=== PATIENT | female | born 1965 | race African-American/Black ===

== ENCOUNTER 2017-03-02 19:25 | Emergency (ER) | payer SELFPAY ==
[~2017-03-02] VITALS: Ht 160 cm; Wt 68.0 kg
[~2017-03-02 19:25] MED LIST: CEPH500C2 PO; FERS325 PO; IBUP-1547 PO; PANT40TA25 PO
[2017-03-02] MEDS ORDERED: ACETAMINOPHEN/CODEINE 300-30 MG TABLET PO ONE (22:00)
[2017-03-02] MEDS ORDERED: IBUPROFEN 600 MG TABLET PO ONE (22:00)
[2017-03-02 23:01] VITALS: BP 129/88
== END 2017-03-02 23:04 | disposition home or self-care (01) ==
LOC: EMS 19:26
DX: S33.5XXA Sprain of ligaments of lumbar spine, initial encounter (principal); S16.1XXA Strain of muscle, fascia and tendon at neck level, initial encounter; J45.909 Unspecified asthma, uncomplicated; I10 Essential (primary) hypertension; F17.210 Nicotine dependence, cigarettes, uncomplicated; W01.0XXA Fall on same level from slipping, tripping and stumbling without subsequent striking against object, initial encounter; Y93.01 Activity, walking, marching and hiking; Y92.89 Other specified places as the place of occurrence of the external cause; Y99.8 Other external cause status
CPT/HCPCS: 72040; 72070; 72100; 99284; 99406

== ENCOUNTER 2019-01-08 14:17 | Emergency (ER) | payer MEDICARE, OTHER ==
[~2019-01-08] VITALS: Ht 160 cm; Wt 68.2 kg
[~2019-01-08 14:17] MED LIST changes: -CEPH500C2 PO; +FERR-89 PO; -FERS325 PO; -IBUP-1547 PO; +IBUP-2077 PO
[2019-01-08] MEDS ORDERED: ALBU8HFA IH (14:36)
[2019-01-08] MEDS ORDERED: PredniSONE 20 MG TABLET PO ONE (15:15)
[2019-01-08] MEDS ORDERED: ALBUTEROL SULFATE 2.5 MG/0.5 ML NEB SOLUTION NEB ONE (15:15)
[2019-01-08] MEDS ORDERED: IPRATROPIUM BROMIDE 0.5 MG/2.5 ML NEB SOLUTION NEB ONE (15:15)
[2019-01-08] MEDS ORDERED: 0.9% SODIUM CHLORIDE 5 ML NEB SOLUTION NEB ONE (15:40)
[2019-01-08 16:28] VITALS: BP 148/86
== END 2019-01-08 16:35 | disposition home or self-care (01) ==
LOC: EMS 14:19
DX: J45.901 Unspecified asthma with (acute) exacerbation (principal); F17.210 Nicotine dependence, cigarettes, uncomplicated; F12.10 Cannabis abuse, uncomplicated; I10 Essential (primary) hypertension; Z79.899 Other long term (current) drug therapy
CPT/HCPCS: 94640; 99283; 99406; J7512

== ENCOUNTER 2019-07-04 19:56 | Emergency (ER) | payer MEDICARE, OTHER ==
[~2019-07-04] VITALS: Ht 160 cm; Wt 70.5 kg
[~2019-07-04 19:56] MED LIST changes: +ALBU8HFA IH; -FERR-89 PO; -IBUP-2077 PO; -PANT40TA25 PO
[2019-07-04] MEDS ORDERED: ALBUTEROL SULFATE 2.5 MG/0.5 ML NEB SOLUTION NEB ONE ×2 (21:30)
[2019-07-04] MEDS ORDERED: IBUPROFEN 800 MG TABLET PO ONE (21:30)
[2019-07-04] MEDS ORDERED: IPRATROPIUM BROMIDE 0.5 MG/2.5 ML NEB SOLUTION NEB ONE ×2 (21:30)
[2019-07-04 22:17] LABS: BASOPHILS % (AUTO) 0.7 % (0.0-2.0); EOSINOPHILS % (AUTO) 1.1 % (1.0-6.0); HEMATOCRIT 42.4 % (36-46); HEMOGLOBIN 13.1 g/dL (12.0-16.0); LYMPHOCYTES % (AUTO) 24.9 % (22.0-44.0); MEAN CORPUSCULAR HEMOGLOBIN 22.6 pg (26.0-34.0); MEAN CORPUSCULAR HGB CONC 30.9 G/dL (31.0-37.0); MEAN CORPUSCULAR VOLUME 73 fL (80-100); MONOCYTES # (AUTO) 0.7 K/uL (0.1-1.0); MONOCYTES % (AUTO) 8.2 % (2.0-9.0); NEUTROPHILS # (AUTO) 5.3 K/uL (1.8-7.7); NEUTROPHILS % (AUTO) 65.1 % (40.0-70.0); PLATELET COUNT (AUTO) 212 K/uL (150-450)
[2019-07-04] MEDS ORDERED: LIDOCAINE 1% 10 ML VIAL ONE (22:26)
[2019-07-04 22:27] LABS: ANION GAP 12 mmol/L (8-16); CALCIUM, TOTAL 9.4 mg/dL (8.8-10.5); CARBON DIOXIDE 25 mmol/L (22-29); CHLORIDE 104 mmol/L (98-107); CREATININE 0.74 mg/dL (0.60-1.30); GLOMERULAR FILTR. RATE CALC > 60 mL/min (>60); GLUCOSE,RANDOM 88 mg/dL (70-110); POTASSIUM 3.9 mmol/L (3.5-5.1); SODIUM SERUM 141 mmol/L (136-145); UREA NITROGEN, BLOOD 14 mg/dL (7-18)
[2019-07-04 22:32] LABS: ALANINE AMINOTRANSFERASE 28 U/L (12-78); ALBUMIN 3.7 g/dL (3.4-5.0); ALKALINE PHOSPHATASE 100 U/L (46-116); ASPARTATE AMINOTRANSFERASE 24 U/L (15-37); BILIRUBIN,TOTAL 0.6 mg/dL (0.1-1.0); TOTAL PROTEIN, SERUM 6.9 g/dL (6.4-8.2)
[2019-07-04] MEDS ORDERED: LORazepam 2 MG/ML VIAL ONE (22:49)
[2019-07-05] MEDS ORDERED: LORazepam 2 MG/ML VIAL IVP ONE (00:30)
[2019-07-05 01:06] VITALS: BP 136/68
== END 2019-07-04 23:59 | disposition home or self-care (01) ==
LOC: EMS 20:05
DX: T54.92XA Toxic effect of unspecified corrosive substance, intentional self-harm, initial encounter (principal); S90.821A Blister (nonthermal), right foot, initial encounter; L02.612 Cutaneous abscess of left foot; J45.901 Unspecified asthma with (acute) exacerbation; I10 Essential (primary) hypertension; F12.90 Cannabis use, unspecified, uncomplicated; F17.210 Nicotine dependence, cigarettes, uncomplicated; Z79.899 Other long term (current) drug therapy; X58.XXXA Exposure to other specified factors, initial encounter; Y93.89 Activity, other specified; Y92.89 Other specified places as the place of occurrence of the external cause; Y99.8 Other external cause status
CPT/HCPCS: 10060; 36415; 80053; 85025; 94640; 99285; J2060; J3490; 96374

== ENCOUNTER 2020-01-28 01:15 | Emergency (ER) | payer MEDICARE, OTHER ==
[~2020-01-28] VITALS: Ht 165.1 cm; Wt 81.8 kg
[2020-01-28] MEDS ORDERED: PredniSONE 20 MG TABLET PO ONE (02:00)
[2020-01-28] MEDS ORDERED: DiphenhydrAMINE HCL 25 MG CAPSULE PO ONE (02:00)
[2020-01-28] MEDS ORDERED: IBUPROFEN 600 MG TABLET PO ONE (03:00)
[2020-01-28] MEDS ORDERED: DOXYCYCLINE HYCLATE 100 MG CAPSULE PO ONE (03:00)
[2020-01-28 03:30] VITALS: BP 133/75
== END 2020-01-28 03:50 | disposition home or self-care (01) ==
LOC: EMS 01:16
DX: T63.441A Toxic effect of venom of bees, accidental (unintentional), initial encounter (principal); J45.909 Unspecified asthma, uncomplicated; I10 Essential (primary) hypertension; F17.210 Nicotine dependence, cigarettes, uncomplicated; F12.90 Cannabis use, unspecified, uncomplicated; Y92.89 Other specified places as the place of occurrence of the external cause
CPT/HCPCS: 99283; J7512; 29540

== ENCOUNTER 2021-04-07 15:11 | Emergency (ER) | payer MEDICARE, OTHER ==
[~2021-04-07] VITALS: Ht 160 cm; Wt 69.0 kg
[2021-04-07] MEDS ORDERED: KETOROLAC TROMETHAMINE 30 MG/ML VIAL IM ONE (17:30)
[2021-04-07 17:36] VITALS: BP 130/91
== END 2021-04-07 19:16 | disposition home or self-care (01) ==
LOC: EMS 15:11
DX: R51.9 Headache, unspecified (principal); M54.2 Cervicalgia; M54.5 Low back pain; J45.909 Unspecified asthma, uncomplicated; I10 Essential (primary) hypertension; F17.210 Nicotine dependence, cigarettes, uncomplicated; F12.90 Cannabis use, unspecified, uncomplicated; V49.9XXA Car occupant (driver) (passenger) injured in unspecified traffic accident, initial encounter; Y93.89 Activity, other specified; Y92.89 Other specified places as the place of occurrence of the external cause; Y99.8 Other external cause status
CPT/HCPCS: 72040; 72100; 73030; 96372; 99284; J1885

== ENCOUNTER 2021-06-05 07:54 | Emergency (ER) | payer MEDICARE, OTHER ==
[~2021-06-05] VITALS: Ht 162.6 cm; Wt 70.5 kg
[2021-06-05] MEDS ORDERED: HYDROCODONE/ACETAMINOPHEN 5-325 MG TABLET PO ONE (09:00)
[2021-06-05 09:58] LABS: BASOPHILS % (AUTO) 0.6 % (0.0-2.0); EOSINOPHILS % (AUTO) 1.8 % (1.0-6.0); HEMATOCRIT 40.4 % (36-46); HEMOGLOBIN 12.7 g/dL (12.0-16.0); LYMPHOCYTES # (AUTO) 2.2 K/uL (1.0-4.8); LYMPHOCYTES % (AUTO) 32.3 % (22.0-44.0); MEAN CORPUSCULAR HEMOGLOBIN 23.2 pg (26.0-34.0); MEAN CORPUSCULAR HGB CONC 31.4 G/dL (31.0-37.0); MEAN CORPUSCULAR VOLUME 74 fL (80-100); MONOCYTES # (AUTO) 0.6 K/uL (0.1-1.0); MONOCYTES % (AUTO) 8.4 % (2.0-9.0); NEUTROPHILS # (AUTO) 3.9 K/uL (1.8-7.7); NEUTROPHILS % (AUTO) 56.9 % (40.0-70.0); PLATELET COUNT (AUTO) 235 K/uL (150-450); RED BLOOD CELL COUNT(AUTO) 5.48 MIL/uL (4.00-5.20); RED CELL DISTRIBUTION WIDTH 15.1 % (11.5-14.5)
[2021-06-05 10:09] LABS: ANION GAP 10 mmol/L (8-16); CALCIUM, TOTAL 8.5 mg/dL (8.8-10.5); CARBON DIOXIDE 28 mmol/L (22-29); CHLORIDE 104 mmol/L (98-107); GLOMERULAR FILTR. RATE CALC > 60 mL/min (>60); GLUCOSE,RANDOM 110 mg/dL (70-110); POTASSIUM 3.9 mmol/L (3.5-5.1); SODIUM SERUM 142 mmol/L (136-145); UREA NITROGEN, BLOOD 10 mg/dL (7-18)
[2021-06-05 10:15] LABS: ALANINE AMINOTRANSFERASE 36 U/L (12-78); ALBUMIN 3.4 g/dL (3.4-5.0); ALKALINE PHOSPHATASE 92 U/L (46-116); ASPARTATE AMINOTRANSFERASE 26 U/L (15-37); BILIRUBIN,TOTAL 0.3 mg/dL (0.1-1.0); C-REACTIVE PROTEIN QUANT 0.31 mg/dL (0.00-0.30); TOTAL PROTEIN, SERUM 6.7 g/dL (6.4-8.2)
[2021-06-05 11:03] LABS: ERYTHROCYTE SEDIMENTATION RATE 10 MM/HR (0-20)
[2021-06-05 12:21] VITALS: BP 131/67
[2021-06-05 12:38] LABS: URIC ACID 5.9 mg/dL (2.6-7.2)
== END 2021-06-05 12:31 | disposition home or self-care (01) ==
LOC: EMS 08:12
DX: M25.562 Pain in left knee (principal); R10.9 Unspecified abdominal pain; M79.89 Other specified soft tissue disorders; J45.909 Unspecified asthma, uncomplicated; I10 Essential (primary) hypertension; F17.210 Nicotine dependence, cigarettes, uncomplicated; F12.90 Cannabis use, unspecified, uncomplicated
CPT/HCPCS: 29530; 80053; 84550; 85025; 85379; 85651; 86140; 87040; 93971; 99284

== ENCOUNTER 2021-12-13 16:44 | Inpatient (IN) | payer MEDICARE, OTHER ==
[~2021-12-13] VITALS: Ht 160 cm; Wt 65.4 kg
[2021-12-13 17:42] LABS: HEMOGLOBIN 14.3 g/dL (12.0-16.0); MEAN CORPUSCULAR HEMOGLOBIN 24.3 pg (26.0-34.0)
[2021-12-13] MEDS ORDERED: CLOPIDOGREL BISULFATE 75 MG TABLET PO ONE (17:45)
[2021-12-13] MEDS ORDERED: ASPIRIN 325 MG TABLET PO ONE (17:45)
[2021-12-13 17:46] LABS: EOSINOPHILS % (AUTO) 0.2 % (1.0-6.0); HEMATOCRIT 43.8 % (36-46); LYMPHOCYTES # (AUTO) 1.8 K/uL (1.0-4.8); LYMPHOCYTES % (AUTO) 26.5 % (22.0-44.0); MEAN CORPUSCULAR HGB CONC 32.6 G/dL (31.0-37.0); MEAN CORPUSCULAR VOLUME 75 fL (80-100); MONOCYTES # (AUTO) 0.6 K/uL (0.1-1.0); MONOCYTES % (AUTO) 8.2 % (2.0-9.0); NEUTROPHILS # (AUTO) 4.5 K/uL (1.8-7.7); NEUTROPHILS % (AUTO) 64.1 % (40.0-70.0); PLATELET COUNT (AUTO) 294 K/uL (150-450); RED BLOOD CELL COUNT(AUTO) 5.87 MIL/uL (4.00-5.20); RED CELL DISTRIBUTION WIDTH 14.8 % (11.5-14.5)
[2021-12-13 17:55] LABS: PROTHROMBIN TIME 10.6 SEC (9.4-11.6)
[2021-12-13 17:55] LABS: ALANINE AMINOTRANSFERASE 29 U/L (12-78); ALBUMIN 3.7 g/dL (3.4-5.0); ALKALINE PHOSPHATASE 79 U/L (46-116); ANION GAP 12 mmol/L (8-16); ASPARTATE AMINOTRANSFERASE 27 U/L (15-37); BILIRUBIN,TOTAL 0.8 mg/dL (0.1-1.0); CARBON DIOXIDE 28 mmol/L (22-29); CHLORIDE 103 mmol/L (98-107); CREATININE 0.59 mg/dL (0.60-1.30); GLUCOSE,RANDOM 95 mg/dL (70-110); SODIUM SERUM 143 mmol/L (136-145); TOTAL PROTEIN, SERUM 7.9 g/dL (6.4-8.2); UREA NITROGEN, BLOOD 10 mg/dL (7-18)
[2021-12-13 17:56] LABS: GLOMERULAR FILTR. RATE CALC > 60 mL/min (>60)
[2021-12-13 18:06] LABS: GLUCOMETER DEV NAME(LOC) ERT.5; GLUCOSE,POINT OF CARE 78 MG/DL (70-110)
[2021-12-13] MEDS ORDERED: ASPIRIN 300 MG RECTAL SUPPOSITORY PR ONE ×2 (19:45→20:00)
[2021-12-13] MEDS ORDERED: ONDANSETRON HCL 4 MG/2 ML VIAL IVP PRN (19:45)
[2021-12-13] MEDS ORDERED: ACETAMINOPHEN 325 MG TABLET PO PRN (19:45)
[2021-12-13] MEDS ORDERED: INSULIN LISPRO 100 UNITS/ML SQ PRN (20:00)
[2021-12-13] MEDS: OXYGEN THERAPY IH SCH (20:00)
[2021-12-13] MEDS ORDERED: POTASSIUM CHL 40 MEQ/D5-0.45NS 1,000 ML IV ONE (20:00)
[2021-12-13] MEDS ORDERED: DEXTROSE 50%-WATER 25 GM/50 ML SYRINGE IVP PRN (20:00)
[2021-12-13 20:15] LABS: CHOL/HDL RATIO 2.6 (3.9-5.7); CHOLESTEROL 245 mg/dL (131-200); HDL CHOLESTEROL 96 mg/dL (40-60); LDL CHOL (CALC.) 122 mg/dL (0-130); TRIGLYCERIDES 133 mg/dL (15-150)
[2021-12-13 20:37] LABS: THYROID STIMULATING HORMONE < 0.01 uIU/mL (0.36-3.74)
[2021-12-13] MEDS ORDERED: HALOPERIDOL LACTATE 5 MG/ML VIAL IM ONE (21:00)
[2021-12-13 21:06] LABS: COVID AG,FIA SOURCE NASAL SWAB
[2021-12-14] MEDS: HEPARIN SODIUM,PORCINE 5,000 UNITS/ML VIAL SQ SCH ×3 (00:35→16:00)
[2021-12-14 00:46] LABS: GLUCOSE,POINT OF CARE 99 MG/DL (70-110)
[2021-12-14 05:36] LABS: EOSINOPHILS % (AUTO) 0.4 % (1.0-6.0); HEMATOCRIT 46.3 % (36-46); HEMOGLOBIN 14.8 g/dL (12.0-16.0); LYMPHOCYTES # (AUTO) 2.2 K/uL (1.0-4.8); LYMPHOCYTES % (AUTO) 31.9 % (22.0-44.0); MEAN CORPUSCULAR HEMOGLOBIN 24.2 pg (26.0-34.0); MEAN CORPUSCULAR HGB CONC 32.1 G/dL (31.0-37.0); MEAN CORPUSCULAR VOLUME 76 fL (80-100); MONOCYTES # (AUTO) 0.8 K/uL (0.1-1.0); NEUTROPHILS # (AUTO) 3.9 K/uL (1.8-7.7); NEUTROPHILS % (AUTO) 55.7 % (40.0-70.0); PLATELET COUNT (AUTO) 312 K/uL (150-450); RED BLOOD CELL COUNT(AUTO) 6.13 MIL/uL (4.00-5.20); RED CELL DISTRIBUTION WIDTH 14.8 % (11.5-14.5)
[2021-12-14 05:43] LABS: ANION GAP 16 mmol/L (8-16); CALCIUM, TOTAL 9.3 mg/dL (8.8-10.5); CARBON DIOXIDE 21 mmol/L (22-29); CHLORIDE 104 mmol/L (98-107); CREATININE 0.63 mg/dL (0.60-1.30); GLOMERULAR FILTR. RATE CALC > 60 mL/min (>60); GLUCOSE,RANDOM 97 mg/dL (70-110); POTASSIUM 3.5 mmol/L (3.5-5.1); SODIUM SERUM 141 mmol/L (136-145); UREA NITROGEN, BLOOD 13 mg/dL (7-18)
[2021-12-14] MEDS: OXYGEN THERAPY IH SCH ×2 (07:26→19:30)
[2021-12-14] MEDS: ASPIRIN 300 MG RECTAL SUPPOSITORY PR SCH (08:33)
[2021-12-14] MEDS ORDERED: SODIUM CHLORIDE 0.9% 100 ML ONE (09:41)
[2021-12-14] MEDS ORDERED: IOHEXOL 350 MG/ML 100 ML VIAL ONE (09:41)
[2021-12-14] MEDS ORDERED: LORazepam 2 MG/ML VIAL IVP ONE (11:15)
[2021-12-14 17:59] VITALS: BP 104/45
[2021-12-14] MEDS: ATORVASTATIN CALCIUM 40 MG TABLET PO SCH (19:31)
[2021-12-14 19:51] LABS: GLUCOSE,POINT OF CARE 88 MG/DL (70-110)
[2021-12-15] MEDS: ASPIRIN 300 MG RECTAL SUPPOSITORY PR SCH (08:02)
[2021-12-15] MEDS: OXYGEN THERAPY IH SCH (09:10)
[2021-12-15 18:51] LABS: GLUCOMETER DEV NAME(LOC) 5N.1C; GLUCOSE,POINT OF CARE 91 MG/DL (70-110)
[2021-12-15 19:15] VITALS: BP 133/87
[2021-12-15] MEDS: ATORVASTATIN CALCIUM 40 MG TABLET PO SCH (20:44)
[2021-12-16] MEDS ORDERED: HALOPERIDOL LACTATE 5 MG/ML VIAL IM ONE (02:00)
[2021-12-16] MEDS ORDERED: LORazepam 2 MG/ML VIAL IVP ONE (02:00)
[2021-12-16 02:48] VITALS: BP 121/66
[2021-12-16 06:46] LABS: GLUCOMETER DEV NAME(LOC) 5N.1C; GLUCOSE,POINT OF CARE 115 MG/DL (70-110)
[2021-12-16 07:12] LABS: GLUCOMETER DEV NAME(LOC) 5N.3; GLUCOSE,POINT OF CARE 113 MG/DL (70-110)
[2021-12-16] MEDS: OXYGEN THERAPY IH SCH ×2 (08:00→20:00)
[2021-12-16 08:30] VITALS: BP 115/78
[2021-12-16 08:57] LABS: GLUCOMETER DEV NAME(LOC) 5N.3; GLUCOSE,POINT OF CARE 96 MG/DL (70-110)
[2021-12-16] MEDS: CLOPIDOGREL BISULFATE 75 MG TABLET PO SCH (09:00)
[2021-12-16] MEDS: ASPIRIN 300 MG RECTAL SUPPOSITORY PR SCH (09:00)
[2021-12-16 11:50] VITALS: BP 128/81
[2021-12-16 12:11] LABS: GLUCOMETER DEV NAME(LOC) 5N.3; GLUCOSE,POINT OF CARE 101 MG/DL (70-110)
[2021-12-16 16:10] VITALS: BP 127/79
[2021-12-16 17:42] LABS: GLUCOMETER DEV NAME(LOC) 5N.3; GLUCOSE,POINT OF CARE 83 MG/DL (70-110)
[2021-12-16] MEDS: DEXTROSE 5%-0.45% SODIUM CHL 1,000 ML IV SCH (18:26)
[2021-12-16 20:24] VITALS: BP 112/70
[2021-12-16 21:01] LABS: GLUCOMETER DEV NAME(LOC) 5N.1C; GLUCOSE,POINT OF CARE 74 MG/DL (70-110)
[2021-12-16] MEDS: ATORVASTATIN CALCIUM 40 MG TABLET PO SCH (21:02)
[2021-12-17 00:19] VITALS: BP 123/76
[2021-12-17 04:40] VITALS: BP 111/62
[2021-12-17 06:11] LABS: GLUCOMETER DEV NAME(LOC) 5N.1C; GLUCOSE,POINT OF CARE 100 MG/DL (70-110)
[2021-12-17 07:16] VITALS: BP 110/54
[2021-12-17] MEDS: OXYGEN THERAPY IH SCH (08:00)
[2021-12-17] MEDS: CLOPIDOGREL BISULFATE 75 MG TABLET PO SCH (08:11)
[2021-12-17 08:16] LABS: GLUCOMETER DEV NAME(LOC) 5S.2B; GLUCOSE,POINT OF CARE 104 MG/DL (70-110)
[2021-12-17] MEDS: ASPIRIN 300 MG RECTAL SUPPOSITORY PR SCH (09:00)
[2021-12-17 11:39] VITALS: BP 119/62
[2021-12-17 12:41] LABS: GLUCOMETER DEV NAME(LOC) 5N.1C; GLUCOSE,POINT OF CARE 92 MG/DL (70-110)
[2021-12-17] MEDS: DEXTROSE 5%-0.45% SODIUM CHL 1,000 ML IV SCH (13:15)
[2021-12-17] MEDS ORDERED: CLOP75TA60 PO (14:29)
[2021-12-17] MEDS ORDERED: ASPI300S PR (14:29)
[2021-12-17] MEDS ORDERED: ATOR20TA65 PO (14:29)
== END 2021-12-17 15:20 | DRG 64 ==
LOC: EDUNIT# 16:44 → EMS 16:45 → UNDOADMIN 19:42 → ICUN 19:42 → AHU 12-15 08:43 → ICU 12-15 15:38 → 5S 12-15 18:00
PROVIDERS: ADMIT Internal Medicine; ATTEND Internal Medicine
DX: I63.512 Cerebral infarction due to unspecified occlusion or stenosis of left middle cerebral artery (principal); G93.6 Cerebral edema; G81.91 Hemiplegia, unspecified affecting right dominant side; E78.5 Hyperlipidemia, unspecified; F17.210 Nicotine dependence, cigarettes, uncomplicated; R47.01 Aphasia; Z20.822 Contact with and (suspected) exposure to COVID-19; F19.10 Other psychoactive substance abuse, uncomplicated; E87.6 Hypokalemia; I10 Essential (primary) hypertension; J45.909 Unspecified asthma, uncomplicated; Z71.6 Tobacco abuse counseling; I65.22 Occlusion and stenosis of left carotid artery
CPT/HCPCS: 70496; 70498; 70551; 71045; 74230; 80048; 80053; 80061; 82962; 83735; 84443; 84484; 85025; 85610; 85730; 86850; 86900; 86901; 87081; 92507; 92526; 92610; 92611; 93005; 93306; 93880; 97112; 97116; 97162; 97167; 97530; 97535; 99291; G0378; J1630; J1644; J2060; J3480; J7050; Q9967; 36415-L1; 36415-TC; 70450; 70450-TC

== ENCOUNTER 2022-01-06 12:03 | Emergency (ER) | payer MEDICARE, OTHER ==
[~2022-01-06] VITALS: Ht 167.6 cm; Wt 88.0 kg
[~2022-01-06 12:03] MED LIST changes: -ALBU8HFA IH; +ASPI300S PR; +ATOR20TA65 PO; +CLOP75TA60 PO
[2022-01-06 12:34] LABS: BASOPHILS % (AUTO) 0.8 % (0.0-2.0); HEMATOCRIT 37.9 % (36-46); HEMOGLOBIN 12.3 g/dL (12.0-16.0); LYMPHOCYTES # (AUTO) 1.7 K/uL (1.0-4.8); LYMPHOCYTES % (AUTO) 37.5 % (22.0-44.0); MEAN CORPUSCULAR HEMOGLOBIN 24.2 pg (26.0-34.0); MEAN CORPUSCULAR HGB CONC 32.5 G/dL (31.0-37.0); MEAN CORPUSCULAR VOLUME 75 fL (80-100); MONOCYTES # (AUTO) 0.5 K/uL (0.1-1.0); MONOCYTES % (AUTO) 11.5 % (2.0-9.0); NEUTROPHILS # (AUTO) 2.2 K/uL (1.8-7.7); NEUTROPHILS % (AUTO) 46.2 % (40.0-70.0); PLATELET COUNT (AUTO) 376 K/uL (150-450); RED BLOOD CELL COUNT(AUTO) 5.09 MIL/uL (4.00-5.20)
[2022-01-06 12:42] LABS: ANION GAP 3 mmol/L (8-16); CALCIUM, TOTAL 9.2 mg/dL (8.8-10.5); CARBON DIOXIDE 31 mmol/L (22-29); CHLORIDE 104 mmol/L (98-107); CREATININE 0.63 mg/dL (0.60-1.30); GLOMERULAR FILTR. RATE CALC > 60 mL/min (>60); GLUCOSE,RANDOM 80 mg/dL (70-110); POTASSIUM 3.9 mmol/L (3.5-5.1); SODIUM SERUM 138 mmol/L (136-145); UREA NITROGEN, BLOOD 12 mg/dL (7-18)
[2022-01-06 12:47] LABS: ALANINE AMINOTRANSFERASE 29 U/L (12-78); ALKALINE PHOSPHATASE 70 U/L (46-116); ASPARTATE AMINOTRANSFERASE 15 U/L (15-37); BILIRUBIN,TOTAL 0.2 mg/dL (0.1-1.0); TOTAL PROTEIN, SERUM 6.9 g/dL (6.4-8.2)
[2022-01-06 15:21] LABS: COVID AG,FIA SOURCE NASAL SWAB
[2022-01-06 15:32] LABS: AMPHET/METH SCREEN,URINE NEGATIVE (NEGATIVE); BARBITURATE SCREEN, URINE NEGATIVE (NEGATIVE); BENZODIAZEPINES SCREEN,URINE NEGATIVE (NEGATIVE); CANNABINOID SCREEN,URINE NEGATIVE (NEGATIVE); COCAINE SCREEN,URINE NEGATIVE (NEGATIVE); METHADONE SCREEN, URINE NEGATIVE (NEGATIVE); OPIATE SCREEN,URINE NEGATIVE (NEGATIVE)
[2022-01-06 15:38] LABS: PHENCYCLIDINE SCREEN,URINE NEGATIVE (NEGATIVE)
[2022-01-06] MEDS ORDERED: LORazepam 1 MG TABLET PO ONE (16:00)
[2022-01-06 16:17] LABS: APPEARANCE,URINE CLOUDY (CLEAR); BILIRUBIN,URINE NEGATIVE (NEGATIVE); GLUCOSE, URINE (UA) NEGATIVE (NEGATIVE); KETONES,URINE NEGATIVE (NEGATIVE); LEUKOCYTE ESTERASE ,URINE MODERATE (NEGATIVE); NITRATE,URINE POSITIVE (NEGATIVE); OCCULT BLOOD,URINE LARGE (NEGATIVE); PH,URINE 5.5 (5.0-8.0); PROTEIN,URINE NEGATIVE (NEGATIVE); UROBILINOGEN,URINE 0.2 mg/dL (<=1.0)
[2022-01-06] MEDS ORDERED: CEPHALEXIN MONOHYDRATE 500 MG CAPSULE PO ONE (16:30)
[2022-01-06 16:37] LABS: BACTERIA,URINE Moderate /HPF (None Seen); SQUAMOUS EPITHELIAL CELL,UR Few /LPF (None Seen); WBC,URINE 26-50 /HPF (0-5)
[2022-01-06] MEDS ORDERED: PHEN-846 PO (18:20)
[2022-01-06] MEDS ORDERED: CEPH500C3 PO (18:20)
[2022-01-06 20:30] VITALS: BP 115/69
== END 2022-01-06 23:02 | disposition home or self-care (01) ==
LOC: EMS 12:06
DX: N39.0 Urinary tract infection, site not specified (principal); I69.30 Unspecified sequelae of cerebral infarction; I10 Essential (primary) hypertension; J45.909 Unspecified asthma, uncomplicated; F17.210 Nicotine dependence, cigarettes, uncomplicated; F12.90 Cannabis use, unspecified, uncomplicated; Z20.822 Contact with and (suspected) exposure to COVID-19
CPT/HCPCS: 36415; 80053; 80307; 81001; 85025; 87086; 87426; 99285; G0480

== ENCOUNTER 2022-02-28 23:05 | Emergency (ER) | payer MEDICARE, OTHER ==
[~2022-02-28] VITALS: Ht 154.9 cm; Wt 75.0 kg
[~2022-02-28 23:05] MED LIST changes: +CEPH-558 PO; +PHEN-846 PO
[2022-03-01] MEDS ORDERED: LORA-999 PO (00:43)
[2022-03-01] MEDS ORDERED: QUET25TA PO (00:43)
[2022-03-01] MEDS ORDERED: OLAN10TA74 PO (00:43)
[2022-03-01] MEDS ORDERED: INSU100V SQ (00:43)
[2022-03-01 06:32] VITALS: BP 127/89
[2022-03-01 08:05] LABS: GLUCOSE,POINT OF CARE 99 MG/DL (70-110)
== END 2022-03-01 08:02 | disposition home or self-care (01) ==
LOC: EMS 23:07
DX: M25.511 Pain in right shoulder (principal); R47.01 Aphasia; M25.531 Pain in right wrist; J45.909 Unspecified asthma, uncomplicated; E11.9 Type 2 diabetes mellitus without complications; I10 Essential (primary) hypertension; F17.210 Nicotine dependence, cigarettes, uncomplicated; F12.90 Cannabis use, unspecified, uncomplicated; Z86.73 Personal history of transient ischemic attack (TIA), and cerebral infarction without residual deficits; Z79.4 Long term (current) use of insulin; Z79.82 Long term (current) use of aspirin
CPT/HCPCS: 82962; 99284